=== PATIENT | female | born 1965 | race Caucasian/White ===

== ENCOUNTER 2018-01-19 17:24 | Emergency (ER) | payer SELFPAY ==
[~2018-01-19] VITALS: Ht 162.6 cm; Wt 81.8 kg
[2018-01-19] MEDS ORDERED: NORCO 5/3251 TABLET PO (20:15)
[2018-01-19 21:00] VITALS: BP 120/65
== END 2018-01-19 21:00 | disposition home or self-care (01) ==
LOC: EME 17:24
PROC: 2W3MX1Z Immobilization of Left Lower Extremity using Splint (ICD-10-PCS; principal; 2018-01-19)
DX: S82.832A Other fracture of upper and lower end of left fibula, initial encounter for closed fracture (principal); W01.0XXA Fall on same level from slipping, tripping and stumbling without subsequent striking against object, initial encounter; Y93.01 Activity, walking, marching and hiking
CPT/HCPCS: 73590; 73610; 73630; 99281; 99284